=== PATIENT | male | born 1990 | race Caucasian/White ===

== ENCOUNTER 2024-11-07 08:18 | Emergency (ER) | payer OTHER ==
[~2024-11-07] VITALS: Ht 175.3 cm; Wt 79.4 kg
[2024-11-07] MEDS ORDERED: HYDROCODONE-AC1 EA10 PO (09:59)
== END 2024-11-07 10:16 | disposition home or self-care (01) ==
LOC: ER 08:18
DX: S92.422A Displaced fracture of distal phalanx of left great toe, initial encounter for closed fracture (principal); V83.7XXA Person on outside of special industrial vehicle injured in nontraffic accident, initial encounter
CPT/HCPCS: 73630